=== PATIENT | female | born 1995 | race Caucasian/White ===

== ENCOUNTER 2017-02-05 05:40 | Emergency (ER) | payer BC ==
[~2017-02-05] VITALS: Ht 165.1 cm; Wt 63.4 kg
[~2017-02-05 05:40] MED LIST: ZOFRAN ODT4 MG PO; ZOFRAN4 MG PO
[2017-02-05] MEDS ORDERED: PEN-VEE K,VEET500 MG PO (06:36)
[2017-02-05] MEDS ORDERED: MOTRIN800 MG PO (06:37)
[2017-02-05 06:43] VITALS: BP 125/90
== END 2017-02-05 07:02 | disposition home or self-care (01) ==
LOC: EME 05:40
DX: J02.0 Streptococcal pharyngitis (principal); Z87.891 Personal history of nicotine dependence
CPT/HCPCS: 87651 90; 99281; 99284